=== PATIENT | male | born 1975 | race Caucasian/White ===

== ENCOUNTER 2019-06-13 08:40 | Emergency (ER) | payer OTHER ==
[2019-06-13 08:51] VITALS: BP 126/76; PULSE 68; TEMP 98.1; BMI 25.7
[2019-06-13] MEDS ORDERED: CYCLOBENZAPRINE HCL 10 MG TABLET (FP) PO ONE (09:17)
[2019-06-13] MEDS ORDERED: KETOROLAC TROMETHAMINE 30 MG/1 ML VIAL IM ONE (09:17)
[2019-06-13] MEDS ORDERED: CYCLOBENZAPRINE HCL 10 MG TABLET (FP) ONE (09:20)
[2019-06-13] MEDS ORDERED: KETOROLAC TROMETHAMINE 30 MG/1 ML VIAL ONE (09:21)
--- NOTE | 2019-06-13 09:27 | PDOC ---
History of Present Illness - General Chief Complaint: Back Pain Stated Complaint: LOWER BACK PAIN Time Seen by Provider: 06/13/19 09:10 History Source: Patient Exam Limitations: No Limitations Past History - Past Medical History Allergies/Adverse Reactions: Allergies Allergy/AdvReac Type Severity Reaction Status Date / Time No Known Allergies Allergy Verified 06/13/19 08:48 Home Medications: Ambulatory Orders Cyclobenzaprine HCl [Flexeril -] 10 mg PO TID PRN #15 tablet 06/13/19 Simvastatin [Zocor -] 5 mg PO HS 06/13/19 COPD: No - Immunization History Immunization Up to Date: No - Psycho Social/Smoking Cessation Hx Smoking History: Never smoked Information on smoking cessation initiated: No Hx Alcohol Use: No Drug/Substance Use Hx: No *Physical Exam - Vital Signs Last Vital Signs Temp Pulse Resp BP Pulse Ox 98.1 F 68 17 126/76 100 06/13/19 08:48 06/13/19 08:48 06/13/19 08:48 06/13/19 08:48 06/13/19 08:48 - Physical Exam General Appearance: No: Apparent Distress Respiratory/Chest: positive: Lungs Clear, Normal Breath Sounds. negative: Respiratory Distress Cardiovascular: positive: Regular Rhythm, Regular Rate, S1, S2. negative: Murmur Musculoskeletal: negative: CVA Tenderness, Muscle Spasm, Vertebral Tenderness Neurologic: positive: Alert, Motor Strength 5/5, Other (normal gait) Medical Decision Making - Medical Decision Making 43-year-old male history of hyperlipidemia presents with lower back pain for 1 week after lifting heavy furniture. Patient took Motrin 2 days ago and yesterday but states it did not help with pain. Denies radiation of pain. Denies fever, shortness of breath, chest pain, abdominal pain, nausea, vomiting, urinary symptoms, bowel/bladder issues, numbness/tingling/weakness of the extremities. Likely muscle strain Given Toradol and flexeril 06/13/19 09:28 Discharge - Discharge Information Problems reviewed: Yes Clinical Impression/Diagnosis: Low back strain Qualifiers: Encounter type: initial encounter Qualified Code(s): S39.012A - Strain of muscle, fascia and tendon of lower back, initial encounter Condition: Stable Disposition: HOME - Admission No - Additional Discharge Information Prescriptions: Cyclobenzaprine HCl [Flexeril -] 10 mg PO TID PRN #15 tablet PRN Reason: Muscle Spasms Prescription Drug Monitoring Program (I-STOP) results: I-STOP not reviewed - Follow up/Referral - Patient Discharge Instructions Patient Printed Discharge Instructions: DI for Back Strain or Sprain Additional Instructions: Thank you for choosing [facility]. It was a pleasure taking care of you. Take Motrin 600 mg every 6 hours as needed for pain. Take with food. Use Flexeril as needed for muscle spasms. This medication can make you drowsy. Heating pads/epsom salt baths may also help Follow-up with your doctor in 2 days Return to the Emergency Department if your symptoms worsen or persist or have other concerning symptoms. - Post Discharge Activity
== END 2019-06-13 09:48 | disposition home or self-care (01) ==
LOC: JERFT 08:40
PROC: 3E0233Z Introduction of Anti-inflammatory into Muscle, Percutaneous Approach (ICD-10-PCS; principal; 2019-06-13)
DX: S39.012A Strain of muscle, fascia and tendon of lower back, initial encounter (principal); X58.XXXA Exposure to other specified factors, initial encounter; Y93.89 Activity, other specified; Y92.89 Other specified places as the place of occurrence of the external cause; E78.5 Hyperlipidemia, unspecified
CPT/HCPCS: 96372; 99284-25

== ENCOUNTER 2020-10-28 11:54 | Emergency (ER) | payer OTHER ==
[2020-10-28 12:19] VITALS: BP 129/78; PULSE 55; TEMP 98.1; BMI 25.7
== END 2020-10-28 13:12 | disposition home or self-care (01) ==
LOC: JER 11:54 → JERFT 11:54
DX: L66.2 Folliculitis decalvans (principal)
CPT/HCPCS: 99283-25

== ENCOUNTER 2023-02-11 14:06 | Emergency (ER) | payer OTHER ==
[2023-02-11 14:17] VITALS: BP 132/81; PULSE 68; RESP 18; TEMP 98.2; BMI 26.1
== END 2023-02-11 15:49 | disposition home or self-care (01) ==
LOC: JERFT 14:06 → JER 14:06 → JERFT 15:49
DX: Z48.02 Encounter for removal of sutures (principal)
CPT/HCPCS: 99281-25

== ENCOUNTER 2023-05-16 08:38 | Emergency (ER) | payer OTHER ==
[2023-05-16 09:24] VITALS: BP 125/75; PULSE 57; RESP 18; TEMP 97.8; BMI 25.7
[2023-05-16] MEDS ORDERED: ACETAMINOPHEN 500 MG TABLET (FP) ONE (10:30)
[2023-05-16] MEDS ORDERED: METHOCARBAMOL 500 MG TABLET ONE (10:30)
[2023-05-16] MEDS ORDERED: KETOROLAC TROMETHAMINE 30 MG/1 ML VIAL ONE (10:30)
[2023-05-16] MEDS: KETOROLAC TROMETHAMINE 30 MG/1 ML VIAL IM ONE (10:38)
[2023-05-16] MEDS: METHOCARBAMOL 750 MG TABLET PO ONE (10:38)
[2023-05-16] MEDS: ACETAMINOPHEN 500 MG TABLET (FP) PO ONE (10:38)
== END 2023-05-16 13:33 | disposition home or self-care (01) ==
LOC: JER 08:38
PROC: 3E0233Z Introduction of Anti-inflammatory into Muscle, Percutaneous Approach (ICD-10-PCS; principal; 2023-05-16)
DX: M54.50 Low back pain, unspecified (principal); M54.2 Cervicalgia; M25.512 Pain in left shoulder; V43.52XA Car driver injured in collision with other type car in traffic accident, initial encounter; Y93.I9 Activity, other involving external motion; Y92.488 Other paved roadways as the place of occurrence of the external cause
CPT/HCPCS: 72050-TC-FY; 72100-TC-FY; 72125-TC; 73030-TC-LT-FY; 99284-25